=== PATIENT | female | born 1980 | race Caucasian/White ===

== ENCOUNTER 2017-04-15 09:02 | Inpatient (IN) | payer OTHER ==
[2017-04-15] VITALS (12 sets, daily range): BP systolic 73–139; BP diastolic 34–95; Ht 160 cm; Wt 66.5 kg
[~2017-04-15] VITALS: Ht 160 cm; Wt 66.5 kg
[2017-04-15 09:48] LABS: microscopic required? NO
[2017-04-15 10:02] LABS: urine erythrocyte NEGATIVE (NEGATIVE)
[2017-04-15 10:10] LABS: BASOPHIL % 0.3 % (0-2); PLATELET COUNT 268 x10^3mcL (130-400); RED CELL DISTRIBUTION WIDTH 13.7 % (11.5-14.5)
[2017-04-15 10:18] LABS: AMPHETAMINE QUAL UR NONE DETECTED (NEG <=1000)
[2017-04-15 10:23] LABS: ALBUMIN 3.7 g/dL (3.4-5.0); ALKALINE PHOSPHATASE 40 U/L (46-116); ALT/SGPT 18 U/L (14-59); AMYLASE 35 U/L (25-115); AST/SGOT 11 U/L (15-37); BILIRUBIN TOTAL 0.1 mg/dL (0.20-1.00); CALCIUM 6.9 mg/dL (8.5-10.1); CARBON DIOXIDE 10.2 mmol/L (21-32); CHLORIDE SERUM 109 mmol/L (98-107); CREATININE SERUM 0.8 mg/dL (0.6-1.0); GFR1 > 60 mL/min; GLUCOSE SERUM 116 mg/dL (74-106); HDL CHOLESTEROL 55 mg/dL (40-60); LIPASE 106 IU/L (73-393); MAGNESIUM 1.8 mg/dL (1.8-2.4); SODIUM SERUM 150 mmol/L (136-145); T4(THYROXINE) 5.3 ug/dL (4.7-13.3); TOTAL PROTEIN, SERUM 6.7 g/dL (6.4-8.2)
[2017-04-15 10:25] LABS: CHOLESTEROL 133 mg/dL (<200); POTASSIUM SERUM 2.5 mmol/L (3.5-5.1)
[2017-04-15] MEDS ORDERED: LAMICTAL150 MG PO (11:15)
[2017-04-15] MEDS ORDERED: IBUPROFEN400 MG PO (11:15)
[2017-04-15 15:02] LABS: CALCIUM 6.3 mg/dL (8.5-10.1); CARBON DIOXIDE 18.3 mmol/L (21-32); CHLORIDE SERUM 110 mmol/L (98-107); CREATININE SERUM 0.7 mg/dL (0.6-1.0); GFR1 > 60 mL/min; GLUCOSE SERUM 151 mg/dL (74-106); POTASSIUM SERUM 4.3 mmol/L (3.5-5.1); SODIUM SERUM 143 mmol/L (136-145)
[2017-04-16] VITALS (19 sets, daily range): BP systolic 102–138; BP diastolic 64–92
[2017-04-16 05:22] LABS: BASOPHIL % 0.2 % (0-2); PLATELET COUNT 221 x10^3mcL (130-400); RED CELL DISTRIBUTION WIDTH 13.9 % (11.5-14.5)
[2017-04-16 05:29] LABS: CALCIUM 6.4 mg/dL (8.5-10.1); CARBON DIOXIDE 24.9 mmol/L (21-32); CHLORIDE SERUM 104 mmol/L (98-107); CREATININE SERUM 0.6 mg/dL (0.6-1.0); GFR1 > 60 mL/min; GLUCOSE SERUM 111 mg/dL (74-106); POTASSIUM SERUM 3.1 mmol/L (3.5-5.1); SODIUM SERUM 139 mmol/L (136-145)
[2017-04-17] VITALS (12 sets, daily range): BP systolic 118–153; BP diastolic 76–107
[2017-04-17 05:28] LABS: BASOPHIL % 0.3 % (0-2); PLATELET COUNT 186 x10^3mcL (130-400)
[2017-04-17 06:02] LABS: CARBON DIOXIDE 26.6 mmol/L (21-32); CHLORIDE SERUM 107 mmol/L (98-107); GLUCOSE SERUM 81 mg/dL (74-106); SODIUM SERUM 141 mmol/L (136-145)
[2017-04-17 06:03] LABS: CALCIUM 7.7 mg/dL (8.5-10.1); CREATININE SERUM 0.5 mg/dL (0.6-1.0); GFR1 > 60 mL/min; MAGNESIUM 1.9 mg/dL (1.8-2.4); PHOSPHOROUS 2.3 mg/dL (2.5-4.9)
[2017-04-18 03:09] VITALS: BP 135/97
[2017-04-18 05:52] LABS: BASOPHIL % 0.4 % (0-2); PLATELET COUNT 205 x10^3mcL (130-400)
[2017-04-18 06:04] LABS: CALCIUM 7.9 mg/dL (8.5-10.1); CARBON DIOXIDE 27.8 mmol/L (21-32); CHLORIDE SERUM 103 mmol/L (98-107); CREATININE SERUM 0.5 mg/dL (0.6-1.0); GFR1 > 60 mL/min; GLUCOSE SERUM 81 mg/dL (74-106); MAGNESIUM 1.9 mg/dL (1.8-2.4); PHOSPHOROUS 3.4 mg/dL (2.5-4.9); POTASSIUM SERUM 3.6 mmol/L (3.5-5.1); SODIUM SERUM 138 mmol/L (136-145)
[2017-04-18 07:28] VITALS: BP 152/97
[2017-04-18 11:13] VITALS: BP 142/97
[2017-04-18 15:46] VITALS: BP 144/96
[2017-04-18 18:04] VITALS: BP 149/97
[2017-04-18 20:45] VITALS: BP 132/88
[2017-04-19 05:19] VITALS: BP 139/91
[2017-04-19 07:30] LABS: BASOPHIL % 0.2 % (0-2); PLATELET COUNT 224 x10^3mcL (130-400); RED CELL DISTRIBUTION WIDTH 13.8 % (11.5-14.5)
[2017-04-19 07:33] LABS: CARBON DIOXIDE 25.5 mmol/L (21-32); CHLORIDE SERUM 99 mmol/L (98-107); CREATININE SERUM 0.6 mg/dL (0.6-1.0); GFR1 > 60 mL/min; GLUCOSE SERUM 87 mg/dL (74-106); POTASSIUM SERUM 3.7 mmol/L (3.5-5.1); SODIUM SERUM 136 mmol/L (136-145)
[2017-04-19 08:56] VITALS: BP 152/91
[2017-04-19 12:22] VITALS: BP 149/95
[2017-04-19] MEDS ORDERED: LIB10 PO (12:58)
[2017-04-19 13:00] VITALS: BP 149/95
== END 2017-04-19 14:55 | disposition home or self-care (01) | DRG 917 ==
LOC: ED 09:02 → IC 11:08 → MU 12:23
PROVIDERS: Emergency Medicine; Family Medicine; Student in an Organized Health Care Education/Training Program
PROC: 5A1945Z Respiratory Ventilation, 24-96 Consecutive Hours (ICD-10-PCS; principal; 2017-04-15)
PROC: 0BH17EZ Insertion of Endotracheal Airway into Trachea, Via Natural or Artificial Opening (ICD-10-PCS; 2017-04-15)
PROC: 02HV33Z Insertion of Infusion Device into Superior Vena Cava, Percutaneous Approach (ICD-10-PCS; 2017-04-15)
PROC: B548ZZA Ultrasonography of Superior Vena Cava, Guidance (ICD-10-PCS; 2017-04-15)
DX: T42.6X2A Poisoning by other antiepileptic and sedative-hypnotic drugs, intentional self-harm, initial encounter (principal); G92 Toxic encephalopathy; J96.00 Acute respiratory failure, unspecified whether with hypoxia or hypercapnia; N17.0 Acute kidney failure with tubular necrosis; E87.2 Acidosis; E87.0 Hyperosmolality and hypernatremia; F31.32 Bipolar disorder, current episode depressed, moderate; R56.9 Unspecified convulsions; T43.292A Poisoning by other antidepressants, intentional self-harm, initial encounter; T39.312A Poisoning by propionic acid derivatives, intentional self-harm, initial encounter; T50.5X2A Poisoning by appetite depressants, intentional self-harm, initial encounter; T43.222A Poisoning by selective serotonin reuptake inhibitors, intentional self-harm, initial encounter; K71.10 Toxic liver disease with hepatic necrosis, without coma; E86.0 Dehydration; E83.51 Hypocalcemia; E87.6 Hypokalemia; E83.39 Other disorders of phosphorus metabolism; D64.9 Anemia, unspecified; E03.9 Hypothyroidism, unspecified; F41.1 Generalized anxiety disorder; F10.129 Alcohol abuse with intoxication, unspecified; Z68.24 Body mass index [BMI] 24.0-24.9, adult; Y90.6 Blood alcohol level of 120-199 mg/100 ml; Y92.89 Other specified places as the place of occurrence of the external cause
CPT/HCPCS: 36556; 36600; 82962; 83880; 94150; 97110-GP; 97116-GP; 97530-GP; A4628; G0480; J1165; J1642; J2060; J2543; J2704; J3411; J3475; J3480; J3490; J7030; J7050; J8597; Q0092